=== PATIENT | male | born 1995 | race Caucasian/White ===

== ENCOUNTER 2018-04-16 18:33 | Emergency (ER) | payer SELFPAY ==
[~2018-04-16] VITALS: Ht 180.3 cm; Wt 90.9 kg
[2018-04-16 18:44] VITALS: BP 129/79
[2018-04-16] MEDS ORDERED: IBUPROFEN 800 MG TABLET PO ONE (21:45)
[2018-04-16] MEDS ORDERED: PERTUSS(ACELL),DIPH,TET VAC/PF 0.5 ML VIAL IM ONE (21:45)
[2018-04-16] MEDS ORDERED: AMOX TR/POT CLAV 875 MG/125 MG TABLET PO ONE (21:45)
== END 2018-04-16 22:46 | disposition home or self-care (01) ==
LOC: EMS 18:34
DX: S81.831A Puncture wound without foreign body, right lower leg, initial encounter (principal); S71.152A Open bite, left thigh, initial encounter; W54.0XXA Bitten by dog, initial encounter; Y93.89 Activity, other specified; Y92.89 Other specified places as the place of occurrence of the external cause; Y99.8 Other external cause status
CPT/HCPCS: 90471; 90715